=== PATIENT | female | born 1975 | race Caucasian/White ===

== ENCOUNTER 2016-07-30 17:15 | Inpatient (IN) | payer SELFPAY ==
[2016-07-30] MEDS: SODIUM CHLORIDE 0.9% FLUSH 10 ML SOL IV SCH (19:10)
[2016-07-30] MEDS ORDERED: SODIUM CHLORIDE 0.9% 50 ML 25 ML IV PRN (19:47)
[2016-07-30] MEDS: LABETALOL HYDROCHLORIDE 100 MG TAB PO SCH (19:52)
[2016-07-30] MEDS ORDERED: AMPICILLIN 1 GM PDS 2 GM in SODIUM CHLORIDE 0.9% 100 ML 100 ML IV SCH (20:00)
[2016-07-30] MEDS ORDERED: AMPICILLIN 1 GM PDS ONE ×2 (20:02→23:59)
[2016-07-30] MEDS ORDERED: CARBOPROST 250 MCG/ML SOL IM PRN (20:03)
[2016-07-30] MEDS ORDERED: METHYLERGONOVINE MALEATE 0.2 MG/ML SOL IM PRN (20:03)
[2016-07-30] MEDS ORDERED: LACTATED RINGERS 1,000 ML IV PRN (20:03)
[2016-07-30] MEDS ORDERED: OXYTOCIN 10000 MU/ML SOL IM PRN (20:03)
[2016-07-30] MEDS ORDERED: FENTANYL CITRATE 50 MCG/ML SOL IV PRN (20:03)
[2016-07-30] MEDS ORDERED: MEPIVACAINE HCL 1% MPF 30 ML SOL INFIL PRN (20:03)
[2016-07-30 20:12] LABS: BASOPHILS % (AUTO) 0 % (0-3); EOSINOPHILS % (AUTO) 1 % (0-9); HEMATOCRIT 33 % (35-47); MEAN CORPUSCULAR HGB CONC 33.3 gm/dl (32.0-36.0); MONOCYTES % (AUTO) 7.5 % (0-12); NEUTROPHILS % (AUTO) 71.7 % (37-80)
[2016-07-30 20:17] LABS: MEAN CORPUSCULAR VOLUME 81 fL (81-99)
[2016-07-30 21:02] LABS: ABO B; ANTIBODY SCREEN Negative; RH TYPE Positive
[2016-07-31] MEDS: SODIUM CHLORIDE 0.9% FLUSH 10 ML SOL IV PRN ×2 (00:16→04:11)
[2016-07-31] MEDS: AMPICILLIN 1 GM PDS 1 GM in SODIUM CHLORIDE 0.9% 100 ML 100 ML IV SCH ×3 (00:16→10:37)
[2016-07-31] MEDS ORDERED: HYDROXYZINE HYDROCHLORIDE 25 MG/ML SOL IM PRN (02:44)
[2016-07-31] MEDS ORDERED: DIPHENHYDRAMINE 50 MG/ML SOL IM PRN (02:44)
[2016-07-31] MEDS ORDERED: NALOXONE HYDROCHLORIDE 0.4 MG/ML SOL IV PRN (02:44)
[2016-07-31] MEDS ORDERED: DIPHENHYDRAMINE 25 MG CAP PO PRN (02:44)
[2016-07-31] MEDS ORDERED: LACTATED RINGERS 1,000 ML IV SCH (02:45)
[2016-07-31] MEDS: SODIUM CHLORIDE 0.9% FLUSH 10 ML SOL IV SCH ×3 (02:52→18:52)
[2016-07-31] MEDS ORDERED: MORPHINE SULFATE 0.5 MG/ML SOL ONE ×2 (03:11→07:36)
[2016-07-31] MEDS: LACTATED RINGERS 1,000 ML IV SCH ×2 (03:14→05:30)
[2016-07-31] MEDS ORDERED: EPHEDRINE SULFATE 50 MG/ML SOL ONE (03:41)
[2016-07-31] MEDS ORDERED: EPHEDRINE SULFATE 50 MG/ML SOL IV ONE (03:50)
[2016-07-31] MEDS ORDERED: AMPICILLIN 1 GM PDS ONE (04:02)
[2016-07-31] MEDS: LABETALOL HYDROCHLORIDE 100 MG TAB PO SCH ×2 (07:14→18:52)
[2016-07-31] MEDS ORDERED: FENTANYL CITRATE 50 MCG/ML SOL ONE (07:37)
[2016-07-31] MEDS ORDERED: WITCH HAZEL 1 EA PAD TOP PRN (10:56)
[2016-07-31] MEDS ORDERED: METHYLERGONOVINE MALEATE 0.2 MG TAB PO PRN (10:56)
[2016-07-31] MEDS ORDERED: BENZOCAINE/MENTHOL 1 SPR TOP PRN (10:56)
[2016-07-31] MEDS ORDERED: BISACODYL 10 MG SUP PR PRN (10:56)
[2016-07-31] MEDS ORDERED: APAP/HYDROCODONE 325/5 TAB PO PRN (10:56)
[2016-07-31] MEDS ORDERED: TEMAZEPAM 15MG 15 MG CAP PO PRN (10:56)
[2016-07-31] MEDS ORDERED: FLEET ENEMA PR PRN (10:56)
[2016-07-31] MEDS ORDERED: LABETALOL HYDROCHLORIDE 100 MG TAB ONE (18:46)
[2016-07-31] MEDS: DOCUSATE SODIUM 100 MG SGL PO SCH (20:38)
[2016-08-01] MEDS: IBUPROFEN 600 MG TAB PO PRN ×3 (01:55→14:45)
[2016-08-01] MEDS: SODIUM CHLORIDE 0.9% FLUSH 10 ML SOL IV SCH ×2 (03:40→18:42)
[2016-08-01] MEDS: LABETALOL HYDROCHLORIDE 100 MG TAB PO SCH ×2 (06:16→19:41)
[2016-08-01] MEDS ORDERED: FLUOXETINE HYDROCHLORIDE 10 MG CAP PO SCH (09:00)
[2016-08-01] MEDS ORDERED: [UNRECOGNIZED DRUG - OTHER] PO SCH (09:00)
[2016-08-01] MEDS ORDERED: PRENATAL VITS PO SCH (09:00)
[2016-08-01] MEDS ORDERED: IRON FUM PO SCH (09:00)
[2016-08-01] MEDS: FOLIC ACID 1 MG TAB PO SCH (09:17)
[2016-08-01] MEDS: DOCUSATE SODIUM 100 MG SGL PO SCH ×2 (09:17→20:13)
[2016-08-01] MEDS: MULTIVITAMIN2 1 EA TAB PO SCH (09:17)
[2016-08-01] MEDS ORDERED: FLUOXETINE HYDROCHLORIDE 10 MG CAP ONE (10:39)
[2016-08-01] MEDS: FLUOXETINE HYDROCHLORIDE 10 MG CAP PO SCH (10:42)
[2016-08-01 23:11] VITALS: O2SAT 98
[2016-08-02] MEDS ORDERED: LABETALOL HYDROCHLORIDE 100 MG TAB ONE (06:10)
[2016-08-02] MEDS: LABETALOL HYDROCHLORIDE 100 MG TAB PO SCH (06:18)
[2016-08-02] MEDS: IBUPROFEN 600 MG TAB PO PRN (06:18)
[2016-08-02] MEDS ORDERED: FLUOXETINE HYDROCHLORIDE 10 MG CAP ONE (09:45)
[2016-08-02] MEDS: FOLIC ACID 1 MG TAB PO SCH (10:01)
[2016-08-02] MEDS: MULTIVITAMIN2 1 EA TAB PO SCH (10:01)
[2016-08-02] MEDS: FLUOXETINE HYDROCHLORIDE 10 MG CAP PO SCH (10:01)
[2016-08-02] MEDS: DOCUSATE SODIUM 100 MG SGL PO SCH (10:01)
[2016-08-02 10:51] VITALS: TEMP 97.6
[2016-08-02 10:52] VITALS: BP 130/82; PULSE 100; RESP 20
== END 2016-08-02 11:55 | disposition home or self-care (01) | DRG 775 ==
LOC: OBSVTOIN 17:15 → OB 17:15
PROVIDERS: ADMIT Family Medicine; ATTEND Family Medicine
PROC: 10907ZC Drainage of Amniotic Fluid, Therapeutic from Products of Conception, Via Natural or Artificial Opening (ICD-10-PCS; principal; 2016-07-31)
PROC: 10E0XZZ Delivery of Products of Conception, External Approach (ICD-10-PCS; 2016-07-31)
DX: O16.4 Unspecified maternal hypertension, complicating childbirth (principal); O99.824 Streptococcus B carrier state complicating childbirth; O69.81X0 Labor and delivery complicated by cord around neck, without compression, not applicable or unspecified; O66.0 Obstructed labor due to shoulder dystocia; Z3A.39 39 weeks gestation of pregnancy; Z37.0 Single live birth
CPT/HCPCS: 36415; 59025; 85018; 85025; 86850; 86900; 86901; 94760; 99070; J0290; J0670; J2275; J2590; J3010